=== PATIENT | male | born 1950 | race Caucasian/White ===

== ENCOUNTER 2019-04-20 15:51 | Emergency (ER) | payer MEDICARE ==
[2019-04-20 15:59] VITALS: BMI 31.6
[2019-04-20] MEDS ORDERED: BLOOD PRESSURE PILL (16:02)
[2019-04-20] MEDS ORDERED: BLADDER PILL (16:03)
[2019-04-20] MEDS ORDERED: COZAAR50 MG PO (16:09)
[2019-04-20] MEDS ORDERED: OXYBUTYNIN CHLOR5 MG PO (16:09)
[2019-04-20 16:33] LABS: INR 1.14 (0.85-1.17); PROTIME 14.1 SECONDS (11.6-15.0)
[2019-04-20 16:34] LABS: APTT 34.3 SECONDS (22.8-39.4)
[2019-04-20 16:37] LABS: BASOPHILS 0.3 % (0-2); EOSINOPHILS 3.3 % (0-7); HEMATOCRIT 39.4 % (42.0-54.0); HEMOGLOBIN 13.2 g/dL (13.5-17.5); IMMATURE GRANULOCYTES 0.1 % (0-5); LYMPHOCYTES 20.8 % (15-50); MCHC 33.5 g/dL (31.0-37.0); MCV 80.6 fL (80.0-100.0); MEAN PLATELET VOLUME 9.8 fL (7.4-10.4); MONOCYTES 7.6 % (2-11); NEUTROPHILS 67.9 % (40-80); PLATELET COUNT 203 10x3/uL (130-400); RBC 4.89 10x6/uL (4.20-6.10); WBC 7.6 10x3/uL (4.8-10.8)
[2019-04-20 16:47] LABS: ALBUMIN 3.5 g/dL (3.4-5.0); ALKALINE PHOSPHATASE 93 U/L (46-116); ALT (SGPT) 20 U/L (10-68); BILIRUBIN - TOTAL 0.29 mg/dL (0.2-1.3); CALC OSMOLALITY 282 mosm/kg (275-300); CALCIUM 8.8 mg/dL (8.5-10.1); CARBON DIOXIDE 25.2 mmol/L (21.0-32.0); CHLORIDE - SERUM 109 mmol/L (98-107); CREATININE - SERUM 1.2 mg/dL (0.6-1.3); GLUCOSE 109 mg/dL (74-106); POTASSIUM - SERUM 4.2 mmol/L (3.5-5.1); PROTEIN - SERUM 7.5 g/dL (6.4-8.2); SODIUM 141 mmol/L (136-145); UREA NITROGEN 14 mg/dL (7-18); eGFR NON AFRICAN AMERICAN 64 mL/min (90-120)
[2019-04-20 16:55] LABS: CKMB 2.2 U/L (0.0-3.6); CREATINE KINASE 186 UL (21-232); MAGNESIUM - SERUM 2.1 mg/dL (1.8-2.4)
[2019-04-20 17:15] LABS: TROPONIN-I 0.064 ng/mL (0.000-0.060)
[2019-04-20 21:06] VITALS: BP 141/81
== END 2019-04-20 21:00 | disposition home or self-care (01) ==
LOC: D.ER 15:51
PROVIDERS: Emergency Medicine
DX: I48.91 Unspecified atrial fibrillation (principal)